=== PATIENT | female | born 1990 | race Hispanic/Latino ===

== ENCOUNTER 2019-12-08 15:09 | Inpatient (IN) | payer MEDICAID, OTHER, SELFPAY ==
[2019-12-08] MEDS ORDERED: FLU VACC QS2019-20(6MOS UP)/PF 60 MCG/0.5 ML SYRINGE IM ONE (20:00)
[2019-12-08 20:20] VITALS: BMI 24.2
[2019-12-08] MEDS ORDERED: Misoprostol 200 MCG TAB PR PRN (20:54)
[2019-12-08] MEDS ORDERED: Ibuprofen 800 MG TAB PO PRN (20:54)
[2019-12-08] MEDS ORDERED: Methylergonovine 0.2 MG/ML VIAL IM PRN (20:54)
[2019-12-08] MEDS ORDERED: Carboprost 250 MCG/ML AMP IM PRN (20:54)
[2019-12-08] MEDS ORDERED: Ondansetron PF 4 MG/2 ML Vial IVP PRN (20:54)
[2019-12-08] MEDS ORDERED: Diphenoxylate HCl/Atropine Tablet PO PRN (20:54)
[2019-12-08] MEDS ORDERED: Butorphanol Tartrate 1 MG/ML VIAL SLOW IVP PRN (20:54)
[2019-12-08] MEDS ORDERED: HYDROcodone/Acetaminophen 5/325 mg Tablet PO PRN (20:54)
[2019-12-08] MEDS ORDERED: Lidocaine 1% (PF) 30 ML VIAL SC PRN (20:54)
[2019-12-08] MEDS ORDERED: Promethazine HCl 25 MG/ML VIAL IM PRN (20:54)
[2019-12-08] MEDS ORDERED: hydrALAZINE 20 MG/ML VIAL SLOW IVP PRN (20:54)
[2019-12-08] MEDS ORDERED: NS w/ Oxytocin 10 units 500 ML IV SCH ×2 (21:00)
[2019-12-08] MEDS: Lactated Ringer's 1,000 ML IV SCH (21:12)
[2019-12-08] MEDS: Misoprostol 100 MCG TAB PO SCH (21:12)
[2019-12-08 21:26] LABS: Hemoglobin 11.7 g/dL (12.0-16.0); Mean Corpuscular HGB CONC 34.4 g/dL (32.0-36.0); Mean Corpuscular Hemoglobin 31.6 pg (27.0-31.0); Mean Platelet Volume 10.2 fL (7.4-10.4); Platelet Count 152 thou/uL (130-400); RBC Distribution Width 14.4 % (11.5-14.5); Red Blood Cell (RBC) Count 3.69 mill/uL (4.20-5.40); White Blood Cell (WBC) Count 8.4 thou/uL (4.8-10.8)
[2019-12-08 22:02] LABS: Syphilis Antibody Nonreactive (Nonreactive); Syphilis Antibody Index 0.06 S/CO (<1.00 Non-Reactive)
[2019-12-08 23:05] LABS: HBSAg Index 0.16 S/CO (0-0.99); Hep B Surf Ag Non-Reactive S/CO (NonReactive)
[2019-12-09] MEDS: Lactated Ringer's 1,000 ML IV SCH ×3 (01:29→23:40)
[2019-12-09] MEDS: Misoprostol 100 MCG TAB PO SCH ×3 (02:11→23:37)
[2019-12-09] MEDS: NS / Oxytocin 40 units/1000ml 1,000 ML IV PRN ×2 (15:50→18:07)
[2019-12-09] MEDS ORDERED: NS / Oxytocin 40 units/1000ml 1,000 ML IV SCH (21:14)
[2019-12-09] MEDS ORDERED: hydrALAZINE 20 MG/ML VIAL SLOW IVP PRN (21:14)
[2019-12-09] MEDS ORDERED: diphenhydrAMINE 25 MG CAP PO PRN (21:14)
[2019-12-09] MEDS ORDERED: Milk Of Magnesia 30 ML UDCUP PO PRN (21:14)
[2019-12-09] MEDS ORDERED: Ondansetron PF 4 MG/2 ML Vial IVP PRN (21:14)
[2019-12-09] MEDS ORDERED: Bisacodyl 10 MG SUPP PR PRN (21:14)
[2019-12-09] MEDS ORDERED: HYDROcodone/Acetaminophen 5/325 mg Tablet PO PRN ×2 (21:14)
[2019-12-09] MEDS ORDERED: Benzocaine-Menthol 82.5 ML CAN TOP PRN (21:14)
[2019-12-09] MEDS ORDERED: Lanolin Ointment 7 GM TUBE TOP PRN (21:14)
[2019-12-09] MEDS: Ibuprofen 800 MG TAB PO SCH (21:21)
[2019-12-09] MEDS: Docusate Calcium (SURFAK) 240 MG CAP PO SCH (23:38)
[2019-12-10] MEDS: Ibuprofen 800 MG TAB PO SCH ×2 (05:09→13:02)
[2019-12-10 06:20] LABS: Hemoglobin 9.2 g/dL (12.0-16.0); Mean Corpuscular HGB CONC 33.7 g/dL (32.0-36.0); Mean Corpuscular Hemoglobin 31.3 pg (27.0-31.0); Mean Corpuscular Volume 92.9 fL (78.0-98.0); Mean Platelet Volume 10.2 fL (7.4-10.4); Platelet Count 134 thou/uL (130-400); RBC Distribution Width 14.5 % (11.5-14.5); Red Blood Cell (RBC) Count 2.93 mill/uL (4.20-5.40); White Blood Cell (WBC) Count 18.6 thou/uL (4.8-10.8)
[2019-12-10] MEDS: Ferrous Sulfate 325 MG TAB PO SCH ×2 (07:49→15:56)
[2019-12-10] MEDS: Docusate Calcium (SURFAK) 240 MG CAP PO SCH (07:50)
[2019-12-10] MEDS ORDERED: Adacel (T-DAP) 0.5 ML SYRINGE IM ONE (09:00)
[2019-12-10] MEDS ORDERED: Prenatal Vitamin 1 TAB PO SCH (09:00)
[2019-12-10 16:18] VITALS: BP 115/55; TEMP 97.8
== END 2019-12-10 18:45 | disposition home or self-care (01) | DRG 807 ==
LOC: L&D 19:15 → 3SW 12-09 19:05 → EDSTATUS 12-30 15:08
PROVIDERS: ADMIT Family Medicine; ATTEND Family Medicine
PROC: 10E0XZZ Delivery of Products of Conception, External Approach (ICD-10-PCS; principal; 2019-12-08)
PROC: 10907ZC Drainage of Amniotic Fluid, Therapeutic from Products of Conception, Via Natural or Artificial Opening (ICD-10-PCS; 2019-12-08)
PROC: 3E033VJ Introduction of Other Hormone into Peripheral Vein, Percutaneous Approach (ICD-10-PCS; 2019-12-08)
PROC: 0KQM0ZZ Repair Perineum Muscle, Open Approach (ICD-10-PCS; 2019-12-08)
DX: O70.1 Second degree perineal laceration during delivery (principal); Z37.0 Single live birth; Z3A.40 40 weeks gestation of pregnancy
CPT/HCPCS: 36415; 85027; 86780; 86850; 86900; 86901; 87340; J0595; J2590